=== PATIENT | male | born 1950 | race Caucasian/White ===

== ENCOUNTER 2017-06-18 13:20 | Emergency (ER) | payer MEDICAID ==
[~2017-06-18] VITALS: Ht 188 cm; Wt 97.8 kg
[2017-06-18] MEDS ORDERED: levoFLOXACIN 250mg tablet PO STA (14:26)
[2017-06-18] MEDS ORDERED: guaiFENesin ER 600mg tablet PO STA (14:27)
[2017-06-18] MEDS ORDERED: ipratropium/albuterol 3ml nebule NEB ONE (14:30)
[2017-06-18] MEDS ORDERED: methylPREDNISolone sod succ 125mg/2ml vial IM ONE (14:30)
[2017-06-18] MEDS ORDERED: ALBU8.5H8 INH (15:17)
[2017-06-18] MEDS ORDERED: METH4TAB3 PO (15:17)
[2017-06-18] MEDS ORDERED: LEVO500T2 PO (15:17)
[2017-06-18] MEDS ORDERED: GUAI600T45 PO (15:17)
[2017-06-18 15:34] VITALS: BP 154/78
== END 2017-06-18 15:36 | disposition home or self-care (01) ==
LOC: ER 13:21
DX: J44.1 Chronic obstructive pulmonary disease with (acute) exacerbation (principal); J20.9 Acute bronchitis, unspecified; F15.10 Other stimulant abuse, uncomplicated; Z86.73 Personal history of transient ischemic attack (TIA), and cerebral infarction without residual deficits; Z56.0 Unemployment, unspecified; Z59.0 Homelessness; Z87.891 Personal history of nicotine dependence; Z88.1 Allergy status to other antibiotic agents
CPT/HCPCS: 71046; 94640; 94760; 96372; 99284; J2930

== ENCOUNTER 2017-06-28 16:55 | Emergency (ER) | payer MEDICAID ==
[~2017-06-28] VITALS: Ht 6206.4 cm; Wt 78.0 kg
[~2017-06-28 16:55] MED LIST: ALBU8.5H8 INH; GUAI600T45 PO; METH4TAB3 PO
[2017-06-28 18:21] LABS: BASOPHILS % (AUTO) 0.5 % (0-1); EOSINOPHILS # (AUTO) 0.2 X10'3 (0-0.9); EOSINOPHILS % (AUTO) 2.5 % (0-6); HEMATOCRIT 44.9 % (42.0-52.0); HEMOGLOBIN 15.4 g/dl (14.0-17.9); LYMPHOCYTES % (AUTO) 31.3 % (21-51); MEAN CORPUSCULAR HEMOGLOBIN 30.1 PG (27.0-31.0); MEAN CORPUSCULAR HGB CONC 34.3 % (33.0-36.5); MEAN CORPUSCULAR VOLUME 87.7 FL (78-98); MEAN PLATELET VOLUME 8.5 FL (7.4-10.4); MONOCYTES # (AUTO) 0.6 X10'3 (0-0.9); MONOCYTES % (AUTO) 8.8 % (2-12); NEUTROPHILS # (AUTO) 3.6 X10'3 (1.8-7.7); NEUTROPHILS % (AUTO) 56.9 % (42-75); PLATELET COUNT 297 X10'3 (140-440); RED BLOOD COUNT 5.13 X10'6 (4.70-6.10); RED CELL DISTRIBUTION WIDTH 13.4 % (11.5-14.5); WHITE BLOOD COUNT 6.3 X10'3 (4.5-11.0)
[2017-06-28 18:51] LABS: ALANINE AMINOTRANSFERASE 69 U/L (12-78); ALBUMIN 3.4 G/DL (3.4-5.0); ALBUMIN/GLOBULIN RATIO 0.9 (1.1-1.5); ALKALINE PHOSPHATASE 75 IU/L (46-116); ANION GAP 9 (8-16); ASPARTATE AMINO TRANSFERASE 37 U/L (10-37); BILIRUBIN,TOTAL 0.6 MG/DL (0.1-1.0); BLOOD UREA NITROGEN 13 MG/DL (7-18); BUN/CREATININE RATIO 14.4 (5.4-32.0); CALCIUM 8.6 MG/DL (8.5-10.1); CHLORIDE 106 MMOL/L (99-107); GLUCOSE 100 MG/DL (70-104); POTASSIUM 3.6 MMOL/L (3.5-5.1); SODIUM 140 MMOL/L (135-145); TOTAL CARBON DIOXIDE 24.6 MMOL/L (24-32); TOTAL PROTEIN 7.4 G/DL (6.4-8.2); eGFR 85 ML/MIN
[2017-06-28 19:03] LABS: ETHANOL < 0.010 GM/DL (0.0-0.010)
[2017-06-28 19:42] LABS: URINE AMPHETAMINE SCREEN NEGATIVE (Neg); URINE BARBITUATE SCREEN NEGATIVE (Neg); URINE BENZODIAZEPINES SCREEN NEGATIVE (Neg); URINE CANNABINOID SCREEN NEGATIVE (Neg); URINE COCAINE SCREEN NEGATIVE (Neg); URINE METHADONE SCREEN NEGATIVE (Neg); URINE OPIATE SCREEN NEGATIVE (Neg); URINE PHENCYCLIDINE SCREEN NEGATIVE (Neg)
[2017-06-28 19:43] LABS: CLARITY,URINE CLEAR (Clear); COLOR,URINE YELLOW (Yellow); GLUCOSE, URINE NEGATIVE (Neg); KETONES,URINE NEGATIVE (Neg); LEUKOCYTE ESTERASE ,URINE NEGATIVE (Neg); NITRITES, URINE NEGATIVE (Neg); OCCULT BLOOD,URINE TRACE-LYSED (Neg); PROTEIN,URINE NEGATIVE (Neg); UROBILINOGEN,URINE 0.2 E.U/dL (0.2-1.0)
[2017-06-28 19:44] LABS: UA COLLECTION TYPE VOIDED
[2017-06-28 19:49] LABS: BACTERIA,URINE NONE SEEN /HPF (Neg); SQUAMOUS EPITHELIAL CELL,UR FEW /LPF (FEW); WBC,URINE 0-4 /HPF (0-4)
[2017-06-28] MEDS ORDERED: gabapentin 400mg capsule PO SCH (21:22)
[2017-06-28] MEDS: ibuprofen tablet 400 MG TABLET PO PRN (21:56)
[2017-06-28] MEDS: gabapentin 300mg capsule PO SCH (21:57)
[2017-06-29] MEDS: citalopram 20mg tablet PO SCH (08:29)
[2017-06-29] MEDS: ibuprofen tablet 400 MG TABLET PO PRN ×2 (08:29→19:54)
[2017-06-29] MEDS: gabapentin 300mg capsule PO SCH ×2 (13:29→19:55)
[2017-06-30 05:56] VITALS: BP 167/62
[2017-06-30] MEDS: citalopram 20mg tablet PO SCH (08:15)
[2017-06-30] MEDS: gabapentin 300mg capsule PO SCH ×2 (08:15→14:20)
== END 2017-06-30 15:14 ==
LOC: ER 16:56
DX: R45.851 Suicidal ideations (principal); J44.9 Chronic obstructive pulmonary disease, unspecified; Z88.1 Allergy status to other antibiotic agents; Z86.73 Personal history of transient ischemic attack (TIA), and cerebral infarction without residual deficits; F15.10 Other stimulant abuse, uncomplicated
CPT/HCPCS: 36415; 80053; 80305; 80320; 81001; 84443; 85025; 99285